=== PATIENT | male | born 1965 | race Asian ===

== ENCOUNTER 2020-10-27 18:06 | Emergency (ER) | payer BC ==
[~2020-10-27] VITALS: Ht 172.7 cm; Wt 68.0 kg
[2020-10-27 18:13] VITALS: Ht 172.7 cm; Wt 68.0 kg
[2020-10-27] MEDS ORDERED: IBU600 M2 PO (20:31)
[2020-10-27] MEDS ORDERED: ANTIBIOTIC O500 U/GM TOP (20:31)
[2020-10-27] MEDS ORDERED: AUGMENTIN 875-1 EACH PO (20:31)
[2020-10-27 20:46] VITALS: BP 119/77
== END 2020-10-27 20:46 | disposition home or self-care (01) ==
LOC: ED 18:06
DX: S81.811A Laceration without foreign body, right lower leg, initial encounter (principal); E11.9 Type 2 diabetes mellitus without complications; W54.0XXA Bitten by dog, initial encounter; Y93.89 Activity, other specified; Y92.830 Public park as the place of occurrence of the external cause; Y99.8 Other external cause status
CPT/HCPCS: 90715